=== PATIENT | male | born 1965 | race Caucasian/White ===

== ENCOUNTER 2019-02-14 18:35 | Emergency (ER) | payer SELFPAY ==
[~2019-02-14] VITALS: Ht 182.9 cm; Wt 102.1 kg
--- NOTE | 2019-02-14 22:42 | EKG ---
[facility] [address] [facility] [place] [address] Signed Normal sinus rhythm Normal ECG No previous ECGs available Confirmed by LIA RUELAS MD ([id number]) on 02/14/2019 10:42:37 PM Electronically Signed By: LIA RUELAS MD 02/14/19 2242 PATIENT NAME: DANG ADKINS Electrocardiogram DATE OF : 65 PHYSICIAN: LIA RUELAS MD REPORT #: [id number] REPORT IS CONFIDENTIAL AND NOT TO BE RELEASED WITHOUT AUTHORIZATION
== END 2019-02-14 20:00 | disposition left against medical advice (07) ==
LOC: ED 18:35
DX: R42 Dizziness and giddiness (principal)
CPT/HCPCS: 71045; 80053; 84484; 85025; 93005; 93010; 99284-25

== ENCOUNTER 2025-02-21 15:34 | Emergency (ER) | payer OTHER ==
[~2025-02-21] VITALS: Ht 182.9 cm; Wt 84.0 kg
--- OUTSIDE RECORDS SUMMARY | 2025-02-21 15:40 | XMS ---
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 No recent Security Events currently on file CRITERIA MET - [facility] - 2 Visits in 30 Days CARE PROVIDERS -[facility] Dentist: Credit Administration Specialist [facility] PHONE: [phone] -Jacquelyn- Dentist: Credit Administration Specialist Current [facility] PHONE: [phone] [facility]: [facility] <UNAVAIL> PHONE: [phone] MARYLOU PRATT [facility] Current PHONE: Unknown Angelique has no Care Guidelines for this patient. Blanca VISIT COUNT (12 MO.) 1 DIM[facility]RIS [facility] TOTAL 2 NOTE: Visits indicate total known visits. ED/UCC VISIT TRACKING (12 MO.) 02/21/2025 15:34 [facility] [place] TYPE: Emergency COMPLAINT: - CHEST PAIN 02/05/2025 22:28 [facility] [place] TYPE: Emergency DIAGNOSES: - Chest pain, unspecified - chest pain INPATIENT VISIT TRACKING (12 MO.) No inpatient visits to display in this time frame [email or web address]
[2025-02-21] MEDS ORDERED: ASPIRIN 81 MG CHEW PO ONE (16:15)
[2025-02-21] MEDS ORDERED: NITROGLYCERIN 0.4 MG SUBL SL PRN (16:15)
[2025-02-21 16:23] LABS: BASOPHILS 0.5 % (0-2); EOSINOPHILS 0.7 % (0-6); HEMOGLOBIN 15.5 g/dL (12.0-18.0); LYMPHOCYTES 12.9 % (24-44); MCH 29.6 (27-36); MCHC 35.3 g/dl (30-36); MCV 83.8 fl (81-99); MONOCYTES 6.2 % (0-12); NEUTROPHILS 79.7 % (39-80); PLATELET COUNT 288 K/uL (140-440); RBC 5.25 M/ul (4.3-5.7); RDW 13.9 (10.5-15.0)
[2025-02-21 16:41] LABS: ALBUMIN/GLOBULIN RATIO 0.73 (1.1-2.4); ANION GAP 9.2 (7-21); BILIRUBIN, TOTAL 0.4 mg/dL (0.2-1.0); BUN/CREATININE RATIO 20.28 (6.0-28.6); CALCIUM 8.4 mg/dL (8.5-10.1); CREATININE, SERUM 0.69 mg/dL (0.70-1.30); MAGNESIUM 2.1 mg/dL (1.8-2.4); POTASSIUM 4.2 mmol/L (3.5-5.1); PROTEIN, TOTAL 7.1 g/dL (6.4-8.2)
[2025-02-21] MEDS ORDERED: ondansetron HCL 4 MG/2 ML VIAL IV ONE (18:15)
[2025-02-21] MEDS ORDERED: HYDROmorphone HCL 1 MG/ML SYR IV ONE ×2 (18:15→19:30)
[2025-02-21 20:20] VITALS: BP 145/88
--- NOTE | 2025-02-23 07:25 | EKG ---
[facility] [address] [facility] [place], [place] [address] Signed Normal sinus rhythm Normal ECG When compared with ECG of 14-FEB-2019 18:38, No significant change was found Confirmed by Ta Dwyer MD ([id number]) on 02/23/2025 7:25:02 AM Electronically Signed By: TA DWYER MD 02/23/25724 PATIENT NAME: DANG ADKINS Electrocardiogram DATE OF : 65 PHYSICIAN: TA DWYER MD REPORT #: [id number] REPORT IS CONFIDENTIAL AND NOT TO BE RELEASED WITHOUT AUTHORIZATION
== END 2025-02-21 20:20 | disposition home or self-care (01) ==
LOC: ED 15:34
PROVIDERS: Emergency Medicine
DX: R10.13 Epigastric pain (principal); F17.200 Nicotine dependence, unspecified, uncomplicated; Z88.5 Allergy status to narcotic agent
CPT/HCPCS: 36415; 71045; 74177; 80053; 83690; 83735; 84484; 85025; 96375; 96376; 99285-25; A9270; J1171; J2405; Q9967